=== PATIENT | female | born 1965 | race Caucasian/White ===

== ENCOUNTER 2018-04-10 09:01 | Emergency (ER) | payer BC, OTHER ==
[2018-04-10 09:21] VITALS: BP 116/79
--- NOTE | 2018-04-10 09:32 | UC ---
Skin Complaint HPI - HPI Summary HPI Summary: This is Eli myrick, documenting for attending Cortez Rico M.D. Pt is a 53 y/o F who presents to [facility] c/o FB sensation in the right 2nd toe. Pt reports that 8 days ago she was stung by a bee and was seen by [facility] 4 days ago where she was put on Keflex 500 mg TID. Per nurse's triage, she started the Abx yesterday and they are improving her symptoms. However, she reports that it feels as though the stinger is still present at the site of sting. Associated pain is moderate, ranked 6/10 on triage. - History of Current Complaint Time Seen by Provider: 04/10/18 09:17 Stated Complaint: BEE STING Hx Obtained From: Patient Onset/Duration: Still Present Current Severity: Moderate Pain Intensity: 6 Pain Scale Used: 0-10 Numeric Location: Other - Right 2nd toe Character: Pain Aggravating Factor(s): Nothing Alleviating Factor(s): Other - Abx Associated Signs & Symptoms: Negative: Fever - Allergy/Home Medications Allergies/Adverse Reactions: Allergies Allergy/AdvReac Type Severity Reaction Status Date / Time wine Allergy Difficulty Uncoded 04/10/18 09:21 Breathing Home Medications: Home Medications Cephalexin CAP* [Keflex 500 CAP*] 1 tab PO TID 04/10/18 [History Confirmed 04/10] Review of Systems Constitutional: Negative Skin: Other - FB sensation and pain on the right 2nd toe Eyes: Negative ENT: Negative Respiratory: Negative Cardiovascular: Negative Gastrointestinal: Negative Genitourinary: Negative Motor: Negative Neurovascular: Negative Musculoskeletal: Negative Neurological: Negative Psychological: Negative All Other Systems Reviewed And Are Negative: Yes PMH/Surg Hx/FS Hx/Imm Hx - Additional Past Medical History Additional PMH: NEGATIVE PMHx: DM, COPD, Asthma, HTN - Surgical History Surgical History: Yes Surgery Procedure, Year, and Place: PARTIAL HYSTERECTOMY [facility]. REPAIR IN RIGHT ELBOW. APPENDECTOMY [facility]. D&C. T&A [facility]. RIGHT TAYLORS BUNION REMOVED. RIGHT TRIGGER FINGER RELEASE 04/26/14 - Family History Known Family History: Negative: Cardiac Disease, Hypertension, Diabetes - Social History Alcohol Use: Rare Substance Use Type: None Smoking Status (MU): Never Smoked Tobacco Physical Exam - Summary Physical Exam Summary: General: well-appearing, no pain distress Skin: warm, color reflects adequate perfusion, dry, on the right 2nd toe on the plantar aspect there is a 2 mm in diameter ecchymotic area and there is a 0.5 mm brown spot Head: normal Eyes: EOMI, JOSE A ENT: normal Neck: supple, nontender Respiratory: CTA, breath sounds present Cardiovascular: RRR Musculoskeletal: normal, strength/ROM intact Neurological: sensory/motor intact, A&O x3 Psychological: affect/mood appropriate Triage Information Reviewed: Yes Vital Signs: Initial Vital Signs Temp 98.1 F 04/10/18 09:16 Pulse 75 04/10/18 09:16 Resp 12 04/10/18 09:16 BP 116/79 04/10/18 09:16 Pulse Ox 97 04/10/18 09:16 Vital Signs Reviewed: Yes Course/Dx - Course Course Of Treatment: Medications reviewed. Allergies noted. I REMOVED A SMALL FB AT THE STING SITE. F/U PMD; RECHECK SOONER IF WORSE. - Diagnoses Provider Diagnoses: INSECT STING LEFT 2ND TOE Procedures - Procedure Summary Procedure Summary: FB Removal: Using Bayonet forceps, I removed the 0.5 mm brown dot, which may be the stinger of a bee Discharge - Sign-Out/Discharge Documenting (check all that apply): Patient Departure - Discharge - Discharge Plan Condition: Stable Disposition: HOME Patient Education Materials: Insect Bite or Sting (ED) Referrals: Jeannine Sosa MD [Primary Care Provider] - Additional Instructions: FOLLOW UP WITH YOUR DOCTOR IF NOT COMPLETELY IMPROVED. GET RECHECKED FOR ANY WORSENING OF YOUR CONDITION OR QUESTIONS OR CONCERNS. - Billing Disposition and Condition Condition: STABLE Disposition: Home
== END 2018-04-10 09:54 | disposition home or self-care (01) ==
LOC: UCEAST 09:01
DX: S90.465A Insect bite (nonvenomous), left lesser toe(s), initial encounter (principal); Z91.018 Allergy to other foods; W57.XXXA Bitten or stung by nonvenomous insect and other nonvenomous arthropods, initial encounter; Y92.9 Unspecified place or not applicable
CPT/HCPCS: 99211; G0463

== ENCOUNTER → 2018-06-20 07:01 | Day surgery (SDC) | payer BC, OTHER ==
[~2018-06-20 07:01] MED LIST: Acetaminophen TAB* 325 MG ONE; Acetaminophen TAB* 325 MG PO ONE; Acetaminophen TAB* 325 MG PO PRN; Buffered Lidocaine 0.9% SYRIN* 5 ML/SYR SYRINGE INTRADERM ONE; Bupivacaine 0.25% EPI 200,000* 30 ML SDV ONE; Bupivacaine 0.5% SDV PF* 30ML VIAL ONE; Dexamethasone IV* 4 MG/ML 1 ML (4 MG) ONE; DiMENhydriNATE IV* 50 MG/ML VIAL IV PUSH PRN; DiMENhydriNATE IV* 50 MG/ML VIAL ONE; EPINEPHRINE 1 MG/ML 1 ML VIAL ONE; Famotidine IV* 10 MG/ML 2 ML (20 mg) ONE; Gabapentin CAP(*) 300 MG ONE; Gabapentin CAP(*) 300 MG PO ONE; HYDROcodone/ACETAMIN 5-325 MG* 1 TAB ONE; HYDROcodone/ACETAMIN 5-325 MG* 1 TAB PO PRN; HYDROmorphone INJ1* 1 MG/ML SYRINGE ONE; KETAMINE HCL* 50 MG/ML 10 ML VIAL ONE; Ketorolac INJ* 30 MG/ML 1 ML VIAL ONE; Levalbuterol 0.63MG/3ML NEB* UNIT OF USE INH PRN; Lidocaine 2% PF * 5 ML VIAL ONE; Midazolam* 1 MG/ML 2 ML VIAL (2 MG) ONE; Naloxone* 0.4 MG/ML 1 ML VIAL IV PRN; Ondansetron INJ* 2 MG/ML VIAL IV PRN; Ondansetron INJ* 2 MG/ML VIAL ONE; PROCHLORPERAZINE INJ 5 MG/ML 2 ML VIAL IV PRN; Propofol* 10 MG/ML 20 ML BTL IV PUSH ONE; Scopolamine 1.5 mg* PATCH ONE; Scopolamine 1.5 mg* PATCH TRANSDERM PRN; Scopolamine PATCH Remove* 1 NOTE MISC PATCH OFF ONE; ceFAZolin 2 GM in NS PREMIX(*) 2 GM/100 ML BAG IVPB ONE; diPHENhydraMINE IV* 50 MG/ML 1 ml VIAL (BENADRYL) IV PRN; fentaNYL* 50 MCG/ML 2 ML VIAL (100 MCG VIAL) IV PRN; fentaNYL* 50 MCG/ML 2 ML VIAL (100 MCG VIAL) ONE
[2018-06-20 14:38] VITALS: BP 153/92
--- NOTE | 2018-06-21 13:19 | OP ---
DATE OF OPERATION: 06/20/18 - SDS DATE OF : 65 SURGEON: Jose Sarkar MD INVENTORY SPECIALIST MANAGER: BRIDGETT Avina. An blood and plasma laboratory assistant was needed for the procedure to aid in positioning of the arm and instrumentation and retraction. ANESTHESIOLOGIST: Dr. Mcdonough. ANESTHESIA: General. PRE-OP DIAGNOSES: 1. Right shoulder biceps tendinitis. 2. Right shoulder impingement syndrome. 3. Right shoulder acromioclavicular degenerative joint disease. POST-OP DIAGNOSES: 1. Right shoulder SLAP tear with biceps tendinitis. 2. Right shoulder impingement syndrome. 3. Right shoulder acromioclavicular degenerative joint disease. OPERATIVE PROCEDURE: 1. Diagnostic right shoulder arthroscopy. 2. Right shoulder SLAP tear debridement. 3. Right shoulder subpectoral biceps tenodesis. 4. Right shoulder arthroscopic decompression with acromioplasty and bursectomy. 5. Right open distal clavicle excision. INDICATIONS: Cony has had chronic right shoulder pain. She has tried extensive nonoperative treatment. We talked about the risks and benefits. She had wanted to proceed with surgery. She understands the risks of stiffness in the shoulders as well as infection and persistent pain despite surgery. ESTIMATED BLOOD LOSS: 5 mL. COMPLICATIONS: None. FINDINGS: See above and below. DESCRIPTION OF PROCEDURE: The patient was seen in the preoperative holding area. The correct site, side, and procedure were identified. We came back to the operating room, the arm was prepped and draped in the usual fashion. A time -out was performed. I began by infiltrating the portal sites with Marcaine with epinephrine. I then developed a posterior portal in the standard location. The joint was cannulated, the camera was introduced through the portal. The diagnostic arthroscopy was performed. Everything looked reasonable except for a large SLAP tear was noted. The rotator cuff was intact. The joint surface looked good. I then developed an anterior portal using an outside-in technique. The cannula was placed. I went ahead and used my biter to do a biceps tenotomy. At the insertion on the superior labrum, I used a shaver and the radiofrequency ablator to debride the SLAP tear back to stable margins. At this point, I moved my arthroscopic equipment to the subacromial space. I performed a subacromial bursectomy and then an acromioplasty removing a small spur using a bur. This was done through the lateral portal which had been created in a standard fashion. Once the acromioplasty was done, I went ahead and removed the arthroscopic equipment. I then made a 2- to 3-cm transverse incision over the AC joint. The superior acromioclavicular ligaments were incised longitudinally. Full-thickness flaps were raised to expose the distal clavicle. I used a sagittal saw to excise the distal 1 cm of the clavicle. The area was irrigated out. I placed a bone wax over the cancellous bone. I then closed the AC ligaments and capsule with 2-0 Vicryl suture. Skin was closed with nylon. Lastly, I made a 5-cm longitudinal incision in the area of the deltopectoral groove. Dissection was carried down the biceps tendon. Hohmann retractors were placed around the humeral shaft. The biceps tendon was visualized in the bicipital groove. This was mobilized and moved out of the groove. I then placed one Mehta [employer] Nephew All-Suture suture anchor in the bicipital groove. Free needles were then used to whipstitch and sew the biceps tendon down to the bicipital groove setting appropriate tension. The remainder of the tendon was excised using the knife. Once the biceps tenodesis was completed, we irrigated out the wound. All the incisions were closed with 3-0 nylon suture. Long- acting local anesthetic was infiltrated into the area. Dressings were placed. The arm was placed in a sling. She was then awoken up and taken to the recovery room in stable condition. [id number]/[facility] #: [id number] SEVERIANO
== END | disposition home or self-care (01) ==
LOC: OR 07:01
PROVIDERS: ATTEND Orthopaedic Surgery Hand Surgery
DX: S43.491A Other sprain of right shoulder joint, initial encounter (principal); X58.XXXA Exposure to other specified factors, initial encounter; Y92.9 Unspecified place or not applicable; Y99.0 Civilian activity done for income or pay; M75.41 Impingement syndrome of right shoulder; M19.011 Primary osteoarthritis, right shoulder; M75.21 Bicipital tendinitis, right shoulder
CPT/HCPCS: 88304; 88311; A9270-GY; C1776; J0690; J1100; J1170; J1240; J1885; J2250; J2405; J2704; J3010

== ENCOUNTER → 2019-08-31 12:48 | Day surgery (SDC) | payer BC ==
--- NOTE | 2019-08-23 09:17 | HP ---
CC: Dr. Lino Womack * PREOPERATIVE HISTORY AND PHYSICAL: DATE OF ADMISSION/SURGERY: This patient is scheduled for same-day surgery admission by Dr. Padron on 08/31/19. DATE OF PREOPERATIVE HISTORY AND PHYSICAL EXAMINATION: 08/22/19. ATTENDING SURGEON: Dr. Gianna Padron * (dictated by Ning Rivera NP). CHIEF COMPLAINT: Large right thyroid nodule. HISTORY OF PRESENT ILLNESS: The patient is a 54-year-old female, recently evaluated by Dr. Padron for a large right thyroid nodule. She notes that she was diagnosed with this large right thyroid nodule about 4 years ago. She stated that the physician noticed that she had an enlarged neck when her neck was in the extended position. She therefore went to her primary care provider and a thyroid ultrasound was performed and showed a very large right thyroid nodule. She was seen in the thyroid nodule clinic and underwent a biopsy that was benign. She has since had serial thyroid ultrasounds and the most recent one showed a growth of the large dominant right-sided thyroid nodule. The patient also says that she has been developing more symptoms such as difficulty swallowing and shortness of breath, but she denies any voice changes. The patient has never had radiation or surgery to her neck, there is no known thyroid cancer in her family. One of her grandmothers had an enlarged thyroid. Dr. Padron has examined the patient and reviewed the findings with her and has recommended right thyroid lobectomy as a same-day surgery procedure with general anesthesia. She described the rationale for the surgery, the nature of the surgery, the relevant risks, benefits, and alternatives, and today I reviewed the expected postoperative care and recovery. The patient has had a chance to ask questions and stated that she understands the information and is satisfied with the answers given to her questions. She will sign surgical consent on the day of surgery. PAST MEDICAL HISTORY: Chronic back pain; chronic right hand and right arm pain , status post injury approximately 8 years ago; sinus headaches; psoriasis. PAST SURGICAL HISTORY: Miscarriage with D and C 1992; appendectomy 1990; hysterectomy 2004; tonsillectomy 2011; repair of right hand, right elbow, and right shoulder. MEDICATIONS: None currently. ALLERGIES: No known drug allergies. FAMILY HISTORY: No known thyroid cancer in the family. Mother age 83 after a brain bleed while on Xarelto. Father is alive at age 88 with a history of stroke and asbestosis. No known anesthesia complications, bleeding tendencies, or clotting disorders. 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 She has never been a smoker. She rarely consumes alcohol and denies the use of other substances. REVIEW OF SYSTEMS: Constitutional: No fevers, chills, excessive fatigue, or weight loss. HEENT: Denies ear symptoms. Denies nasal symptoms. Denies mouth or throat symptoms. Cardiovascular: Denies chest pain, palpitations, history of heart attack or rheumatic fever. Respiratory: Occasional shortness of breath and wheezing. Denies chronic cough. Gastrointestinal: Denies nausea , vomiting, diarrhea, constipation, or change in bowel habits. Genitourinary: Denies any dysuria or hematuria. Musculoskeletal: Currently has back pain and is seeing a chiropractor with relief. Integumentary: Denies any skin, hair, or nail symptoms. Neurologic: Denies dizziness, headache, migraine headaches, or numbness. Psychiatric: Denies anxiety or depression. Endocrine: Denies diabetes. Hematologic: Denies anemia or bleeding tendencies. Has never received a blood transfusion. General: With previous anesthesia complications. Has had vomiting. She denies any history of deep vein thrombosis or pulmonary embolism. PHYSICAL EXAMINATION GENERAL SURVEY: The patient is a 54-year-old obese female, well developed, well nourished, in no acute distress. VITAL SIGNS: Height 69 inches, weight 224 pounds, body mass index 33.1. Blood pressure 124/76, pulse 72 and regular, respiratory rate 16, temperature 98.4 tympanic. SKIN: Warm, dry, intact. HEENT: Benign. NECK: Supple. Enlarged right thyroid nodule, visible mass anterior neck. BACK: No CVA tenderness. LUNGS: Breath sounds bilaterally clear and equal. HEART: Regular rate and rhythm. No murmurs or rubs appreciated. ABDOMEN: Active bowel sounds. Soft, nondistended, nontender throughout. No guarding or rebound. No obvious masses or organomegaly. PELVIC: Exam deferred. RECTAL: Exam deferred. EXTREMITIES: Warm and well perfused. No edema or skin ulcerations. NEUROLOGIC: Alert and oriented x3. Steady gait. IMPRESSION: Nontoxic single right thyroid nodule. PLAN/RECOMMENDATIONS: Same-day surgery admission to Dr. Gianna Padron's service on 08/31/19 for right thyroid lobectomy. IRVING RIVERA, SMALL BUSINESS BANKING OFFICER [id number]/[facility] #: [id number] [facility]
[~2019-08-31 12:48] MED LIST changes: -Acetaminophen TAB* 325 MG ONE; -Acetaminophen TAB* 325 MG PO PRN; -Buffered Lidocaine 0.9% SYRIN* 5 ML/SYR SYRINGE INTRADERM ONE; +Buffered Lidocaine 1% SYRIN* 1 ML/SYRINGE INTRADERM ONE; -Bupivacaine 0.25% EPI 200,000* 30 ML SDV ONE; -Bupivacaine 0.5% SDV PF* 30ML VIAL ONE; +Dexamethasone IV* 4 MG/ML 1 ML (4 MG) IV SLOW PU ONE; -DiMENhydriNATE IV* 50 MG/ML VIAL IV PUSH PRN; -DiMENhydriNATE IV* 50 MG/ML VIAL ONE; -EPINEPHRINE 1 MG/ML 1 ML VIAL ONE; +Famotidine IV* 10 MG/ML 2 ML (20 mg) IV ONE; -Gabapentin CAP(*) 300 MG ONE; -Gabapentin CAP(*) 300 MG PO ONE; -HYDROcodone/ACETAMIN 5-325 MG* 1 TAB ONE; -HYDROcodone/ACETAMIN 5-325 MG* 1 TAB PO PRN; -HYDROmorphone INJ1* 1 MG/ML SYRINGE ONE; -Ketorolac INJ* 30 MG/ML 1 ML VIAL ONE; +Lactated Ringers 1000 ML Bag* 1,000 ML IV SCH; -Levalbuterol 0.63MG/3ML NEB* UNIT OF USE INH PRN; +Morphine PF AMP (0.5MG/ML)* 5 MG/10 ML AMP ONE; -Naloxone* 0.4 MG/ML 1 ML VIAL IV PRN; +Neostigmine Methylsulfate* 3 MG/3 ML SYRINGE ONE; -Ondansetron INJ* 2 MG/ML VIAL IV PRN; -PROCHLORPERAZINE INJ 5 MG/ML 2 ML VIAL IV PRN; -Propofol* 10 MG/ML 20 ML BTL IV PUSH ONE; +Propofol* 10 MG/ML 20 ML BTL ONE; +Scopolamine 1.5 mg* PATCH TRANSDERM ONE; -Scopolamine 1.5 mg* PATCH TRANSDERM PRN; -Scopolamine PATCH Remove* 1 NOTE MISC PATCH OFF ONE; +Succinylcholine* 20 MG/ML 10 ML VIAL ONE; -ceFAZolin 2 GM in NS PREMIX(*) 2 GM/100 ML BAG IVPB ONE; -diPHENhydraMINE IV* 50 MG/ML 1 ml VIAL (BENADRYL) IV PRN; -fentaNYL* 50 MCG/ML 2 ML VIAL (100 MCG VIAL) IV PRN; +fentaNYL* 50 MCG/ML 5 ML VIAL (250 MCG VIAL) ONE
[2019-08-31 14:04] VITALS: BP 133/93
== END | disposition home or self-care (01) ==
LOC: OR 12:48
PROVIDERS: ATTEND Surgery
DX: E04.1 Nontoxic single thyroid nodule (principal); Z53.9 Procedure and treatment not carried out, unspecified reason
CPT/HCPCS: A9270-GY; J0330; J1100; J2250; J2405; J2704; J2710; J3010

== ENCOUNTER 2019-09-01 06:39 | Observation (INO) | payer BC ==
[2019-09-01] MEDS ORDERED: Lidocaine 1% INJ* 10 MG/ML 30 ML SDV ONE (08:09)
[2019-09-01] MEDS ORDERED: Bupivacaine 0.25% SDV PF* 10 ML VIAL INJ ONE (08:09)
[2019-09-01] MEDS ORDERED: Scopolamine 1.5 mg* PATCH ONE (08:21)
[2019-09-01] MEDS ORDERED: Naloxone* 0.4 MG/ML 1 ML VIAL IV PRN (10:02)
[2019-09-01] MEDS ORDERED: HYDROmorphone INJ1* 1 MG/ML SYRINGE IV PRN (10:02)
[2019-09-01] MEDS ORDERED: Acetaminophen TAB* 325 MG PO PRN ×2 (10:02→11:40)
[2019-09-01] MEDS ORDERED: Ondansetron INJ* 2 MG/ML VIAL IV PRN ×2 (10:02→11:40)
[2019-09-01] MEDS ORDERED: oxyCODONE TAB* 5 MG TAB PO PRN (10:02)
[2019-09-01] MEDS ORDERED: PROCHLORPERAZINE INJ 5 MG/ML 2 ML VIAL IV PRN (10:02)
[2019-09-01] MEDS ORDERED: diPHENhydraMINE IV* 50 MG/ML 1 ml VIAL (BENADRYL) IV PRN (10:02)
--- NOTE | 2019-09-01 10:58 | BRIEFOPN ---
Brief Operative/Procedure Note - Operation Details Pre-Op Diagnosis: large right thyroid nodule Post-Op Diagnosis: same Procedures: right thyroid lobectomy Surgeon(s)/Proceduralists: Angelica Cuenca Anesthesia: GETA Findings: large right thyroid lobe Complications: none
[2019-09-01] MEDS ORDERED: oxyCODONE/Acetamin 5/325 MG* TAB PO PRN (11:45)
[2019-09-01 16:22] VITALS: BP 140/84
--- NOTE | 2019-09-01 16:23 | OP ---
DATE OF OPERATION: 09/01/19 - ROOM #352 DATE OF : 65 SERVICE: General Surgery. ATTENDING SURGEON: Gianna Padron MD ARMORED TRUCK DRIVER: Dr. Angelica Matamoros. ANESTHESIOLOGIST: Dr. Pascale Manuel. ANESTHESIA: General endotracheal anesthesia. PRE-OP DIAGNOSIS: Large right thyroid nodule. POST-OP DIAGNOSIS: Large right thyroid nodule. OPERATIVE PROCEDURE: Right thyroid lobectomy. ESTIMATED BLOOD LOSS: Approximately 50 cc. SPECIMEN: Right thyroid lobe. INDICATIONS FOR SURGERY: Ms. Johnson is a very pleasant 54-year-old female with a history of a large right thyroid nodule that she wished to have removed given that it was becoming symptomatic. She understood the risks of surgery included but were not limited to bleeding, infection, injury of structures such as the recurrent laryngeal nerve. She understood these and wished to proceed. DESCRIPTION OF PROCEDURE: The patient was brought back to the operating room and placed on the operating room table in supine position. Sequential compression devices were placed in the bilateral lower extremities for DVT prophylaxis. No antibiotics were administered. General endotracheal anesthesia was induced. The electrodes of the nerve monitor were attached. The patient's neck was placed in extended position and then a time-out was performed prior to administering local anesthesia to the neck, which consisted of 0.25% Marcaine plus 1% lidocaine mixed. After this, the neck was prepped and draped in normal sterile fashion. A second time- out was performed verifying the patient's name, date of , and the procedure to be performed. Then, an approximately 4.5 cm incision was made in natural crease line approximately 2 fingerbreadths above the sternal notch. The skin was divided down to the subcutaneous tissue where the platysma was divided and then the inferior and superior subplatysmal flaps were developed. The median raphe between the strap muscles were identified and strap muscles retracted bilaterally. The right thyroid lobe was extremely enlarged and it caused some left tracheal deviation. The trachea was found more towards the left of the midline of the neck. Once this was identified, the isthmus was identified and then the isthmus was divided off the trachea at the midline. Once this was done, the medial attachments of the right thyroid lobe to the trachea were divided, and after this was done, the strap muscles were retracted laterally off the thyroid lobe and the space lateral to the lobe was identified to allow for mobility of it and then attention was turned towards taking down the superior pole vessels. The superior pole vessels were divided with a combination of 2-0 silk ties and LigaSure. After this was done, the thyroid lobe was able to be delivered out of the neck, and attention was turned towards identifying the recurrent laryngeal nerve, which was identified both visually and with nerve monitor. After its course was entirely traced out into where it inserted into the inferior constricter muscles, the thyroid lobe was then able to be safely divided off the trachea using LigaSure. The right upper parathyroid was identified, it was very adherent and close to the recurrent laryngeal nerve. The right lower parathyroid is not definitively identified, but was likely in the thyrothymic ligament. At this point, the thyroid lobe was then marked at the upper pole and taken off the table as specimen. Hemostasis was obtained. A small amount of Tisseel was placed into the right lateral neck. The strap muscles were reapproximated using 4-0 Vicryl sutures. The platysma was reapproximated using 4-0 Vicryl sutures and the skin was closed using a running 5-0 Prolene suture. Sterile dressing was in place. The patient's anesthesia was reversed and she was taken to the PACU in stable condition. At the end of the case, all counts were correct and I was present during the entirety of the case. [id number]/[facility] #: [id number] SEVERIANO
--- NOTE | 2019-09-27 00:52 | DS ---
DISCHARGE SUMMARY: DATE OF ADMISSION: 09/01/19 DATE OF DISCHARGE: 09/01/19 SERVICE: General Surgery. ATTENDING PHYSICIAN: Gianna Padron MD ADMISSION DIAGNOSIS: Large right thyroid nodule. DISCHARGE DIAGNOSIS: Large right thyroid nodule. OPERATION TITLE: Right thyroid lobectomy. HOSPITAL COURSE: Ms. Johnson is a very pleasant 54-year-old female who underwent a right thyroid lobectomy for a large right thyroid nodule on . This was an ambulatory procedure, however, given that there was not enough nursing staff in the recovery room to monitor the patient, she was sent to same day surgery floor for her recovery. We monitored for 6 hours after surgery, she was discharged home in good condition. A pre-printed handout with post operative instructions was given to the patient. [id number]/[facility] #: [id number] MTDD
== END 2019-09-01 17:15 | disposition home or self-care (01) ==
LOC: OR 06:39 → SSU 11:40
PROVIDERS: ADMIT Surgery; ATTEND Surgery
DX: E04.1 Nontoxic single thyroid nodule (principal); M54.9 Dorsalgia, unspecified; M79.601 Pain in right arm; L40.9 Psoriasis, unspecified; G89.29 Other chronic pain; R06.02 Shortness of breath
CPT/HCPCS: 88305; 88307; A9270-GY; C1776; G0378; J0330; J1100; J2250; J2405; J2704; J3010; J3490